=== PATIENT | female | born 1975 | race Caucasian/White ===

== ENCOUNTER 2018-04-01 10:11 | Emergency (ER) | payer MEDICAID ==
[~2018-04-01] VITALS: Wt 65.4 kg
[2018-04-01 10:17] VITALS: BP 124/79; PULSE 81; RESP 18
[2018-04-01] MEDS ORDERED: METR500T PO (12:21)
[2018-04-01] MEDS ORDERED: FLUCONAZOLE 150 MG TAB PO ONE (12:30)
--- NOTE | 2018-04-01 21:38 | ERD ---
ER Documentation Chief Complaint Chief Complaint DYSURIA X 2 DAYS HPI 42-year-old female presents for dysuria times 2 days. She states that she has a burning sensation when she urinates. There is also white discharge from the vaginal area with itchiness. She thinks that it could be a fungal infection. No other complaints. ROS All systems reviewed and are negative except as per history of present illness. Medications Home Meds Active Scripts Clotrimazole* (Clotrimazole* AF) 1% - 30 Gm Cream.gm., 1 APPLIC TOP BID for 7 Days, TUB Prov:MAY GONZALES PA-C 04/04/18 Miconazole Nitrate (Miconazole 7) 100 Mg Supp.vag, 100 MG VG QHS, #7 SUPP.VAG Prov:MAY GONZALES PA-C 04/04/18 Metronidazole* (Flagyl*) 500 Mg Tablet, 500 MG PO BID for dysuria for 7 Days, #14 TAB Prov:JN RODRIGES DO 04/01/18 Allergies Allergies: Coded Allergies: No Known Allergy (Unverified , 04/04/18) PMhx/Soc Medical and Surgical Hx: pt denies Medical Hx History of Surgery: Yes (c section x 2) Anesthesia Reaction: No Hx Neurological Disorder: No Hx Respiratory Disorders: No Hx Cardiac Disorders: No Hx Psychiatric Problems: No Hx Miscellaneous Medical Probl: No Hx Alcohol Use: No Hx Substance Use: No Hx Tobacco Use: No Physical Exam Vitals Temperature 98.3, pulse 81, respiration 18, blood pressure 124/79, O2 saturation 99% on room air Physical Exam Const: No acute distress Resp: Clear to auscultation bilaterally Cardio: Regular rate and rhythm, no murmurs Abd: Soft, non tender, non distended. Normal bowel sounds Skin: No petechiae or rashes Back: No midline or flank tenderness Ext: No cyanosis, or edema Neur: Awake and alert Psych: Normal Mood and Affect Results 24 hrs Laboratory Tests Test 04/01/18 11:29 Urine Color YELLOW Urine Clarity CLEAR Urine pH 5.0 Urine Specific [place] 1.009 Urine Ketones NEGATIVE mg/dL Urine Nitrite NEGATIVE mg/dL Urine Bilirubin NEGATIVE mg/dL Urine Urobilinogen NEGATIVE mg/dL Urine Leukocyte Esterase NEGATIVE Vy/ul Urine Microscopic RBC 2 /HPF Urine Microscopic WBC 0 /HPF Urine Squamous Epithelial Cells FEW /HPF Urine Bacteria FEW /HPF Urine Hemoglobin 1+ mg/dL Urine Glucose NEGATIVE mg/dL Urine Total Protein NEGATIVE mg/dl Current Medications Medications Dose Sig/Gregory Start Time Status Last (Trade) Ordered Route PRN Stop Time Admin Dose Reason Admin Fluconazole 150 mg ONCE ONCE 04/01/18 DC 04/01/18 (Diflucan) PO 12:30 12:32 04/01/18 12:31 Procedures/MDM Medical Decision Making: Differential diagnosis includes but not limited to urinary tract infection, urethritis, fungal infection Patient appeared well on physical exam. Patient was given a dose of Diflucan in the ER for empiric treatment of vaginal candidiasis. UA was checked and was negative for urinary tract infection. Patient was treated empirically with Flagyl for possible bacterial vaginosis Patient advised to follow up with PCP in 1-2 days. Patient advised to return to ED for new or worsening symptoms. Patient stable on discharge from the ED. Disclaimer: Inadvertent spelling and grammatical errors are likely due to EHR/dictation software use and do not reflect on the overall quality of patient care. Also, please note that the electronic time recorded on this note does not necessarily reflect the actual time of the patient encounter. Departure Diagnosis: Primary Impression: Dysuria Condition: Fair Patient Instructions: Dysuria Referrals: [facility] YOU HAVE RECEIVED A MEDICAL SCREENING EXAM AND THE RESULTS INDICATE THAT YOU DO NOT HAVE A CONDITION THAT REQUIRES URGENT TREATMENT IN THE EMERGENCY DEPARTMENT. FURTHER EVALUATION AND TREATMENT OF YOUR CONDITION CAN WAIT UNTIL YOU ARE SEEN IN YOUR DOCTORS OFFICE WITHIN THE NEXT 1-2 DAYS. IT IS YOUR RESPONSIBILITY TO MAKE AN APPOINTMENT FOR FOLOW-UP CARE. IF YOU HAVE A PRIMARY DOCTOR --you should call your primary doctor and schedule an appointment IF YOU DO NOT HAVE A PRIMARY DOCTOR YOU CAN CALL OUR PHYSICIAN REFERRAL HOTLINE AT IF YOU CAN NOT AFFORD TO SEE A PHYSICIAN YOU CAN CHOSE FROM THE FOLLOWING [facility] CL[facility]ICS [facility] [address] [facility] [address] [facility] [address] [facility] [address] [facility] [address] [facility]. [facility] [address] Additional Instructions: Llame al doctor MAANA y nolvia donaldo EYAD PARA DENTRO DE 1-2 DUONG.Dgale a la secretaria que nosotros le instruimos hacer esta eyad.Avise o llame si kiser condicin se empeora antes de la eyad. Regresa aqui si peor o no mejor. JN RODRIGES DO Apr 01, 2018 21:38
[2018-04-04] MEDS ORDERED: MICO100S4 VG (08:53)
[2018-04-04] MEDS ORDERED: CLOT30CR24 TOP (08:53)
== END 2018-04-01 12:36 | disposition home or self-care (01) ==
LOC: EDBD 10:11 → FTE 10:11
DX: R30.0 Dysuria (principal)
CPT/HCPCS: 81001; Z7502; Z7610; 99283